=== PATIENT | male | born 2000 | race Caucasian/White ===

== ENCOUNTER → 2023-11-12 | Emergency (ER) | payer SELFPAY ==
[~2023-11-12] MED LIST: ACETAMINOPHEN 500 MG TAB ONE; AMOX/K CLAV 875 MG TAB ONE
--- NOTE | 2023-11-12 18:00 | RAD REPORT ---
EXAM DESCRIPTION: CT - CTFB CLINICAL HISTORY: TRAUMA COMPARISON: No comparisons TECHNIQUE: Axial 2 mm thick images of the face were obtained with sagittal and coronal reconstructio n images. All CT scans are performed using dose optimization technique as appropriate and may include automated exposure control or mA/KV adjustment according to patient size. FINDINGS: Age indeterminate nondisplaced left nasal bone fracture.The mandible is intact. The globes and orbital contents are grossly unremarkable.Trace bilateral maxillary sinus thickening. Mild ethmoid air cell thickening. IMPRESSION: Age indeterminate left nasal bone fracture.
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
[2023-11-12 21:28] VITALS: BP 148/100; TEMP 98.1; O2SAT 100
== END ==
LOC: ER 16:42
DX: S01.511A Laceration without foreign body of lip, initial encounter (principal); S02.2XXA Fracture of nasal bones, initial encounter for closed fracture
CPT/HCPCS: 70486; 76377